=== PATIENT | female | born 1965 ===

== ENCOUNTER 2024-11-23 06:00 | Day surgery (SDC) | payer OTHER ==
[2024-11-16 13:00] VITALS: BP 124/84
[~2024-11-23] VITALS: Ht 154.9 cm; Wt 81.6 kg
[~2024-11-23 06:00] MED LIST: AVAPRO300 MG PO; CLONAZEPAM2 MG PO; HYDRALAZINE HCL50 MG PO; LIPITOR40 M1 PO; PEPCID40 MG PO; PRILOSEC OTC20 MG PO; PRISTIQ ER100 MG PO; TAPAZOLE5 MG PO; TOPROL XL50 M1 PO
[2024-11-23] MEDS ORDERED: GENTAMICIN SULFATE 40 MG/ML VIAL ONE (07:47)
[2024-11-23] MEDS ORDERED: LIDOCAINE HCL 1% 20 ML VIAL IJ ONE (07:48)
[2024-11-23] MEDS ORDERED: CEFAZOLIN SODIUM 1,000 MG VIAL ONE (08:27)
[2024-11-23] MEDS ORDERED: CEPHALEXIN250 MG PO (11:39)
[2024-11-23] MEDS ORDERED: TRAM1TAB98 PO (11:39)
== END 2024-11-23 14:05 | disposition home or self-care (01) ==
LOC: CIR.AMB 06:00
PROVIDERS: ATTEND Obstetrics & Gynecology Gynecology
DX: T85.193A Other mechanical complication of implanted electronic neurostimulator, generator, initial encounter (principal); T85.191A Other mechanical complication of implanted electronic neurostimulator of peripheral nerve electrode (lead), initial encounter; N32.81 Overactive bladder; R15.9 Full incontinence of feces; N39.41 Urge incontinence